=== PATIENT | female | born 1960 | race Caucasian/White ===

== ENCOUNTER 2019-10-16 12:58 | Emergency (ER) | payer SELFPAY ==
--- OUTSIDE RECORDS SUMMARY | 2019-10-16 13:13 | XMS REPORT | Summary of Care ---
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 migraine, unspecified migraine type ondansetron (ZOFRAN Take 1 Tab 40 Tab 3 06/19/2019 Active ODT) 8 MG Oral by mouth TABLET EVERY EIGHT DISPERSIBLEIndicati HOURS ons: Migraine NEEDED without status (nausea). migrainosus, not intractable, unspecified migraine type azithromycin Take 2 pills 6 Tab 0 08/13/2019 Active (ZITHROMAX) 250 MG on the first Oral Tab day and 1 pill each day for 4 days fluconazole Take 1 Tab 2 Tab 0 08/13/2019 Active (DIFLUCAN) 150 MG by mouth Oral Tab DAILY. topiramate TAKE 3 180 Tab 5 09/23/2019 Active (TOPAMAX) 25 MG TABLETS BY Oral MOUTH TWICE TabIndications: DAILY Migraine without status migrainosus, not intractable, unspecified migraine type AJOVY 225 MG/1.5ML Inject 675 3 Syringe 3 10/02/2019 Active Subcutaneous mg beneath Solution Prefilled the skin SyringeIndications: EVERY 90 Chronic migraine DAYS. AJOVY 225 MG/1.5ML Inject 225 1 Syringe 5 07/03/2019 Discontinued Subcutaneous mg beneath 9 (Reorder) Solution Prefilled the skin SyringeIndications: EVERY THIRTY Chronic migraine DAYS. documented as of this encounter (statuses as of 10/03/2019) Active Problems Problem Noted Date Neck pain 04/02/2019 Left shoulder pain 04/11/2017 Endometrial polyp 11/26/2015 Menorrhagia 11/26/2015 Mixed hyperlipidemia 11/15/2010 Major depression in remission 11/15/2010 Chronic migraine 09/08/2009 Overview: Visual scotoma 1 migraine/2 weeks Failed non steroidal anti-inflammatory medications and triptans in the past As needed lortab use-2-4 per week-Tani narcotic treatment contract signed with Dr Farr 10/2010 Tobacco use 09/08/2009 Overview: Quit 10/06 Began age 21 Restarted 2013 10 cigarette per day documented as of this encounter (statuses as of 10/03/2019) Immunizations Name Administration Dates Next Due Depo Medrol (40mg) 10/12/2016 Influenza (IM) Preservative Free 08/01/2018, 07/31/2018, 07/31/2017, 07/31/2017, 11/01/2015, 09/08/2009 Kenalog (80 mg) 04/30/2014 TDAP Vaccine 09/08/2009 Toradol (60 mg) 09/12/2018, 04/30/2014 documented as of this encounter Social History Tobacco Use Types Packs/Day Years Used Date Heavy Tobacco Smoker Cigarettes 0.5 22 Quit: 09/30/2009 Smokeless Tobacco: Never Used Comments: last time tried to quit 5 years [id number] Alcohol Use Drinks/Week oz/Week Comments Yes rare Sex Assigned at Date Recorded Not on file Job Start Date Occupation Industry Not on file Not on file Not on file Travel History Travel Start Travel End No recent travel history available. documented as of this encounter Last Filed Vital Signs Vital Sign Reading Time Taken Comments Blood Pressure - - Pulse - - Temperature - - Respiratory Rate - - Oxygen Saturation - - Inhaled Oxygen Concentration - - Weight 56.2 kg (124 lb) 10/02/2019 4:37 PM EST Height 162.6 cm (5' 4") 10/02/2019 4:37 PM EST Body Mass Index 21.28 10/02/2019 4:37 PM EST documented in this encounter Progress Notes Jag Butler CRNP - 10/02/2019 4:20 PM EST PATIENT: Mahnaz Castellanos : 1960 DATE OF SERVICE: 10/02/2019 REFERRING PRACTITIONER: Self-Referred PRIMARY CARE PROVIDER: Mariano Farr CHIEF COMPLAINT: Chief Complaint Patient presents with Neurologic Problem HISTORY OF PRESENT ILLNESS: Mahnaz Castellanos is a 58-y.o. female who presents for a follow up on chronic migraines. She is doing great on the Ajovy. No side effects. Significant decrease in her headaches. Patient denies weakness, numbness, paresthesias, burning sensation, vertigo, difficulty with balance, seizures, visual disturbance, spells, fatigue, changes in reflexes, changes in gait, coordination problems, bladder dysfunction, bowel dysfunction, tremor and speech problems. Patient states current problem has been stable without any evidence of deterioration. Patient does not report any side effects from the medications Patient has been happy with current management and agrees with treatment plans. Past Medical History: Diagnosis Date Fractures Osteoarthritis Premenopausal patient Past Surgical History: Procedure Laterality Date HYSTEROSCOPY, DILATATION AND CURETTAGE N/A 12/15/2015 Procedure: HYSTEROSCOPY, DILATATION AND CURETTAGE, POLYPECTOMY; Surgeon: Tr Davenport MD; Location: [facility] MAIN OR DC NERVOUS SYSTEM SURGERY UNLISTED cervical fusion Family History Problem Relation Age of Onset Hypertension Mother Diabetes Father Cancer Father skin Current Outpatient Medications Medication Sig AJOVY 225 MG/1.5ML Subcutaneous Solution Prefilled Syringe Inject 675 mg beneath the skin EVERY 90 DAYS. azithromycin (ZITHROMAX) 250 MG Oral Tab Take 2 pills on the first day and 1 pill each day for 4 days fluconazole (DIFLUCAN) 150 MG Oral Tab Take 1 Tab by mouth DAILY. ondansetron (ZOFRAN ODT) 8 MG Oral TABLET DISPERSIBLE Take 1 Tab by mouth EVERY EIGHT HOURS NEEDED (nausea). Rizatriptan Benzoate 5 MG Oral TABLET DISPERSIBLE Take 1-2 Tabs by mouth DAILY NEEDED (migraine). topiramate (TOPAMAX) 25 MG Oral Tab TAKE 3 TABLETS BY MOUTH TWICE DAILY No current facility-administered medications for this visit. No Known Allergies Social History Socioeconomic History Marital status: Spouse name: Not on file Number of children: Not on file Years of education: Not on file Highest education level: Not on file Occupational History Not on file Social Needs Financial resource strain: Not on file Food insecurity: Worry: Not on file Inability: Not on file Transportation needs: Medical: Not on file Non-medical: Not on file Tobacco Use Smoking status: Heavy Tobacco Smoker Packs/day: 0.50 Years: 22.00 Pack years: 11.00 Types: Cigarettes Last attempt to quit: 09/30/2009 Years since quittin.0 Smokeless tobacco: Never Used Tobacco comment: last time tried to quit 5 years [id number] Substance and Sexual Activity Alcohol use: Yes Comment: rare Drug use: No Sexual activity: Yes Partners: Male Lifestyle Physical activity: Days per week: Not on file Minutes per session: Not on file Stress: Not on file Relationships Social connections: Talks on phone: Not on file Gets together: Not on file Attends anabaptism service: Not on file Active member of club or organization: Not on file Attends meetings of clubs or organizations: Not on file Relationship status: Not on file Intimate partner violence: Fear of current or ex partner: Not on file Emotionally abused: Not on file Physically abused: Not on file Forced sexual activity: Not on file Other Topics Concern Back Care Not Asked Bike Helmet Not Asked Blood Transfusions No Caffeine Concern No Exercise Yes Comment: walking in her job daily 1-2 hours daily Hobby Hazards Not Asked International Travel No Service No Occupational Exposure Not Asked Seat Belt Not Asked Self-Exams Not Asked Sleep Concern No Special Diet No Stress Concern No Weight Concern No Social History Narrative Lives in [place], [place] 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 REVIEW OF SYSTEMS: A comprehensive review of systems was negative except for as noted in the history of present illness/subjective. PHYSICAL EXAMINATION: Ht 5' 4" (1.626 m) | Wt 124 lb (56.2 kg) | BMI 21.28 kg/m Body mass index is 21.28 kg/m. GENERAL: alert, oriented, no acute distress, appears stated age. SKIN: normal, no rashes or abnormalities noted. HEENT: sclera normal, anicteric, mucous membrane moist, conjunctiva pink and pale, normal dentition, pupils equal, round, reactive to light, extraocular movement intact and normal dentition, tongue midline . NEUROLOGICAL: Cranial nerves: unremarkable. Sensory: normal to pain, touch, vibration and position sensation in upper and lower bilateral extremities Motor: 5/5 in all major muscle groups. Reflexes: 2+ and symmetric Coordination: normal Gait and station: normal. IMPRESSION/PLAN: ICD-9-CM ICD-10-CM Chronic migraine 346.70 G43.709 Doing great. Will switch to three injections (675 Mg) q90 days. The patient indicates understanding and agrees with the plan. I will plan to see them back in neurology as needed. Author: MYESHA Linda 10/03/2019 12:57 documented in this encounter Plan of Treatment Date Type Specialty Care Team Description 02/02/2020 Office Visit Neurology Jag Butler CRNP 1 [address] [place] [address] Health Maintenance Due Date Last Done Comments PNEUMOCOCCAL 0-64 YRS (1 of 1966 1 - PPSV23) Colonoscopy 2010 ZOSTER IMMUNIZATION SERIES 2010 (1 of 2) MAMMOGRAM (SCREENING) 11/04/2010 11/04/2009 LIPID DISORDER SCREENING 11/14/2017 11/14/2012, 11/18/2010, 09/08/2009 PAP SMEAR 11/12/2018 11/12/2015, 11/14/2012, 11/14/2012, Additional history exists INFLUENZA VACCINE (#1) 2019 08/01/2018, 07/31/2018, 07/31/2017, Additional history exists DEPRESSION SCREENING 08/13/2020 08/13/2019 HPV IMMUNIZATION SERIES Aged Out No longer eligible based on patient's age to complete this topic MENINGOCOCCAL VACCINE IMM Aged Out No longer eligible based on patient's age to complete this topic documented as of this encounter Goals Goal Patient Goal Associated Recent Patient-Stated? Author Type Problems Progress Depression Depression No Yordan, screen (PHQ-9) Mariano Camejo, total score < 5 Note: This is an individualized treatment (depression) goal for Mahnaz NaylorffmanYesyWright: Displayed above is your goal for a depression screening (PHQ-9) score that would indicate good control of your depression. Keep a regular sleep schedule Lifestyle No Mariano Farr MD Note: This is an individualized lifestyle goal for Mahnaz Camejo Jasmin: Please maintain a regular sleep schedule. This may help with some symptoms of depression. Take all prescribed medications as Self-management Mariano Bennett MD directed Note: This is an individualized self-management goal for Mahnaz Camejo DawsonDanay: Please take all prescribed medications as directed. 1. Do not skip doses. If you cannot afford your medications, talk with your doctor. 2. Use a pill reminder system such as a pill box if needed. Your pharmacist can help you with this. 3. Contact your Pharmacy 5 days before your medication runs out. If you cannot take your medications for any reasons, talk with your doctor. 4. Please bring all of your medication bottles and inhalers (or a list of all your medications/inhalers) with you to every visit. Potential barriers to meeting all of your care plan goals will continue to be addressed on an ongoing basis. documented as of this encounter Results Not on filedocumented in this encounter Visit Diagnoses Diagnosis Chronic migraine - Primary Chronic migraine without aura, without mention of intractable migraine without mention of status migrainosus documented in this encounter Insurance Payer Benefit Plan / Subscriber ID Effective Dates Phone Address Type Group [employer] xxxxxxxxxxxx 2015-Present [employer] Guarantor Name Account Type Relation to Date of Phone Billing Patient Address Jennifer Castellanos/Family 1960 [phone] [address] [phone] [facility] ([place]) [place] [id number] documented as of this encounter
[2019-10-16 13:19] VITALS: BP 150/72
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
== END 2019-10-16 14:45 | disposition home or self-care (01) ==
LOC: UCEAST 12:58
DX: M54.2 Cervicalgia (principal); M25.512 Pain in left shoulder; G43.909 Migraine, unspecified, not intractable, without status migrainosus; M50.30 Other cervical disc degeneration, unspecified cervical region; M47.892 Other spondylosis, cervical region; F17.210 Nicotine dependence, cigarettes, uncomplicated; Z79.899 Other long term (current) drug therapy; Z98.1 Arthrodesis status; V43.52XA Car driver injured in collision with other type car in traffic accident, initial encounter
CPT/HCPCS: 72020; 72050; 99202; G0463